=== PATIENT | female | born 1935 | race Caucasian/White ===

== ENCOUNTER 2016-12-05 07:59 | Emergency (ER) | payer OTHER ==
[2016-12-05 08:20] VITALS: BP 174/74; PULSE 68; RESP 16; TEMP 98.6; O2SAT 96
--- NOTE | 2016-12-05 08:52 | EDPHY ---
H & P Stated Complaint: L ANKLE AND BILATERAL KNEE PAIN VS FALL SAT NIGHT Time Seen by Provider: 12/05/16 08:31 HPI/ROS: Chief Complaint: Left ankle pain HPI: 81-year-old woman sustained a mechanical fall 2 nights ago. Patient tripped and fell forward landing on her knees. She twisted her ankle and has had ankle pain and swelling since that time. She has been able to ambulate. She has history of prior injuries to the ankle normally wears a brace. No new numbness or weakness. Did not hit her head. No other injuries. He did have some swelling to her knees but they are improved. Is not complaining of any knee pain at this time. ROS: 10 point Review of Systems is negative except as noted in the HPI. PMH: Hypertension Social History: No smoking, no alcohol, no recreational drug use Family History: non-contributory Physical Exam: Gen: Awake, Alert, No Distress HEENT: Nose: no rhinorrhea Eyes: PERRLA, EOMI Mouth: Moist mucosa Ext: Right knee: Small contusions over the patella. Full range of motion without pain. Nontender. Left knee: Small contusions over the patella. Full range of motion without pain, no bony tenderness. Left ankle. There is tenderness and swelling over the lateral malleolus with tenderness over the anterior and posterior talofibular ligaments. She has 2+ dorsalis pedis pulses. Capillary refills less than 2 seconds. Sensations intact in all dermatomes. Skin: no rash Neuro: CN II-XII intact, Sensation grossly intact, Strength 5/5 in bilateral upper and lower extremities - Personal History Current Tetanus Diphtheria and Acellular Pertussis (TDAP): Yes Tetanus Vaccine Date: WITHIN 10 YRS - Medical/Surgical History Hx Asthma: No Hx Chronic Respiratory Disease: No Hx Diabetes: No Hx Cardiac Disease: No Hx Renal Disease: No Hx Cirrhosis: No Hx Alcoholism: No Hx HIV/AIDS: No Hx Splenectomy or Spleen Trauma: No Other PMH: HTN, HIGH CHOLESTROL, GOUT, BILATERAL HIP REPLACEMENTS, PERIPHERAL NEUROPATHY, BLADDER PROLAPSE, A-FIB WITH ABLATION - Social History Smoking Status: Never smoked Constitutional: Initial Vital Signs Temperature (C) 37.0 C 12/05/16 08:14 Heart Rate 68 12/05/16 08:14 Respiratory Rate 16 12/05/16 08:14 Blood Pressure 174/74 H 12/05/16 08:14 O2 Sat (%) 96 12/05/16 08:14 O2 Delivery Mode Room Air Allergies/Adverse Reactions: Penicillins Allergy (Verified 12/05/16 08:12) Home Medications: Medication Instructions Recorded Metoprolol Succinate Xr [Toprol Xl 100 mg PO DAILY 06/18/14 100 mg (*)] amLODIPine BESYLATE [Norvasc 10 mg 10 mg PO DAILY 06/18/14 (*)] Aspirin [Aspirin 81mg (*)] 81 mg PO DAILY 11/05/14 Apixaban [Eliquis] 5 mg PO BID #60 tab 11/07/14 Atorvastatin Calcium 12/05/16 Hydrochlorothiazide 12/05/16 Lisinopril 12/05/16 Medical Decision Making - Diagnostics Imaging Results: Imaging Impressions Ankle X-Ray 12/05/16 08:17 Impression: 1. Remote avulsion fractures of the medial and lateral malleoli with suspected superimposed acute or subacute fracture of the lateral malleolus. 2. Small ankle joint effusion. 3. Tibiotalar, talocalcaneal and midfoot osteoarthrosis. ED Course/Re-evaluation: 81-year-old with known nonhealing avulsion fractures with new ankle pain and a possible new acute or subacute avulsion. She has been walking on it for the last 2 days. It would be extremely difficult for her to be able to get around with crutches and a CT and has formal splint. After a long discussion with her she has agreed will put her in an orthopedic boot. She will continue to ambulate with a cane and follow up with her orthopedist. Departure - Departure Disposition: Home, Routine, Self-Care Clinical Impression: Ankle fracture Condition: Good Instructions: Ankle Fracture (ED) Additional Instructions: Alternate acetaminophen (1000 mg) with ibuprofen (400 mg) every 4 hours as needed for aches or pains. Apply ice the ankle for 15 minutes every 2-3 hours while awake. Follow up with orthopedist, Dr Sanches, in 2-3 days. Return to the emergency department for increasing pain, numbness, weakness, inability to walk, or any other concerns. Referrals: Sheldon Sanches MD [Medical Doctor] - As per Instructions
== END 2016-12-05 09:14 | disposition home or self-care (01) ==
LOC: CED 07:59
DX: S82.52XA Displaced fracture of medial malleolus of left tibia, initial encounter for closed fracture (principal); S82.62XA Displaced fracture of lateral malleolus of left fibula, initial encounter for closed fracture; I10 Essential (primary) hypertension; Z79.82 Long term (current) use of aspirin; W01.0XXA Fall on same level from slipping, tripping and stumbling without subsequent striking against object, initial encounter
CPT/HCPCS: 73610; 99283; L4386